=== PATIENT | male | born 1985 | race Two or more races ===

== ENCOUNTER 2017-03-06 07:51 | Emergency (ER) | payer OTHER ==
[2017-03-06 07:56] VITALS: BP 145/73; PULSE 80; TEMP 98.5; BMI 32.9
--- NOTE | 2017-03-06 08:22 | PDOC ---
History of Present Illness - General Chief Complaint: Cold Symptoms Stated Complaint: COUGH/SORE THROAT/RESPIRATORY Time Seen by Provider: 03/06/17 08:16 History Source: Patient Exam Limitations: No Limitations - History of Present Illness Initial Comments: 03/06/17 08:39 Her throat and pleuritic chest pain. States has had worsening cough and runny nose for the past 3 days, and is coughing causing his chest to pain in his throat to hurt more. Patient has severe seasonal ALLERGIES and receive shots weekly at the ENT doctors. Understands his tonsils are grossly enlarged but ear nose and throat doctor does not feel the need to be removed. Also suffers from sleep apnea. Denies fever, denies purulent drainage from nose,throat is red however has no exudate. Timing/Duration: reports: constant, getting worse Severity: reports: mild, moderate Past History - Travel Traveled outside of the country in the last 30 days: No Close contact w/someone who was outside of country & ill: No - Past Medical History Allergies/Adverse Reactions: Allergies Allergy/AdvReac Type Severity Reaction Status Date / Time No Known Allergies Allergy Verified 03/06/17 07:55 Home Medications: Ambulatory Orders Albuterol Sulfate Inhaler - [Ventolin HFA Inhaler -] 1 - 2 inh PO Q4H PRN #1 inhaler 05/17/16 Albuterol 0.083% Nebulizer Margaret [Ventolin 0.083% Nebulizer Soln -] 1 neb NEB Q4H PRN #30 vial 03/06/17 Prednisone [Deltasone -] 20 mg PO BID #8 tablet 03/06/17 Asthma: Yes - Surgical History Appendectomy: Yes - Immunization History Immunization Up to Date: Yes - Suicide/Smoking/Psychosocial Hx Smoking History: Never smoked Information on smoking cessation initiated: No Hx Alcohol Use: No Drug/Substance Use Hx: No Substance Use Type: None Respiratory Specific PMHX - Complaint Specific PMHX Bronchitis: No Pneumonia: No Review of Systems - Review of Systems Able to Perform ROS?: Yes Is the patient limited Urdu proficient: Yes Constitutional: Yes: Symptoms Reported, See HPI, Fever, Malaise HEENTM: Yes: Symptoms Reported Respiratory: Yes: Symptoms reported, See HPI, Cough. No: Wheezing Cardiac (ROS): No: Symptoms Reported ABD/GI: Yes: See HPI Musculoskeletal: Yes: Symptoms Reported, See HPI, Muscle Weakness Integumentary: Yes: See HPI. No: Symptoms Reported All Other Systems: Reviewed and Negative *Physical Exam - Vital Signs Last Vital Signs Temp Pulse Resp BP Pulse Ox 98.5 F 80 18 145/73 97 03/06/17 07:53 03/06/17 07:53 03/06/17 07:53 03/06/17 07:53 03/06/17 07:53 - Physical Exam General Appearance: Yes: Nourished, Appropriately Dressed, Mild Distress. No: Apparent Distress HEENT: positive: BETSY, Normal ENT Inspection, TMs Normal, Tonsillar Erythema ( mild erythema with grossly enlarged tonsils bilaterally. Patient states is baseline. No exudate noted and no fted odor. The posterior sinus drainage that sick whitish clear in posterior pharynx.), Nasal Congestion, Rhinorrhea, Sinus Tenderness. negative: Pharynx Normal, Muffled/Hoarse voice (stuffy nose) Neck: positive: Supple, Lymphadenopathy (R), Lymphadenopathy (L). negative: Tender Respiratory/Chest: positive: Lungs Clear, Other (deep inspiration provokes pleuritic chest pain). negative: Normal Breath Sounds (tight inspiratory and expiratory breath sounds, without rales although has faint wheezing.), Wheezing Cardiovascular: positive: Regular Rate Gastrointestinal/Abdominal: positive: Soft Musculoskeletal: positive: Normal Inspection Extremity: positive: Normal Capillary Refill, Normal Inspection, Normal Range of Motion Integumentary: positive: Normal Color, Dry, Warm Neurologic: positive: cable weaver II-XII NML intact, Fully Oriented, Alert, Normal Mood/ Affect, Normal Response, Motor Strength 5/5 Progress Note - Progress Note Progress Note: ALLERGIC rhinitis with severe posterior sinus drainage, pleuritic chest pain due to frequent cough caused by same. Rapid strep test is negative, mildly improved after DuoNeb and prednisone Medical Decision Making - Medical Decision Making 03/06/17 09:45 Much improved after prednisone and DuoNeb. States is ready for discharge. Will continue treating ALLERGIC rhinitis and encourage follow up with ENT *DC/Admit/Observation/Transfer Diagnosis at time of Disposition: Allergic rhinitis Qualifiers: Chronicity: acute Allergic rhinitis trigger: unspecified Allergic rhinitis seasonality: unspecified seasonality Qualified Code(s): J30.9 - Allergic rhinitis, unspecified; J30.9 - Allergic rhinitis, unspecified - Discharge Dispostion Disposition: HOME Condition at time of disposition: Stable Admit: No - Prescriptions Prescriptions: Prednisone [Deltasone -] 20 mg PO BID #8 tablet Albuterol 0.083% Nebulizer Margaret [Ventolin 0.083% Nebulizer Soln -] 1 neb NEB Q4H PRN #30 vial PRN Reason: Cough - Patient Instructions Additional Instructions: Rest, drink lots of fluids: Teas, water, soups Saltwater gargles. Consider humidifier in room at night Steamy showers/seem to face break up mucus Avoid contact with allergens, exposure to pollens, close windows on a windy day Lots of handwashing and good hygiene Continue [id number] medications for symptomatic relief- may use allergic eyedrops for itching I Continue antihistamines daily until pollen season is over; Zyrtec, Claritin, Crystal during the daytime and Benadryl at nighttime as will make sleepy Tylenol or Motrin for fever and pain Continue albuterol nebulizers every 4-6 hours for the next 2 days then as needed for persistent cough Prednisone 40 mg daily for the next 4 days Followup with private physician in one to 2 days Consider following up with an snipper/fire prevention inspector for skin testing and possible allergy shots Return to emergency department for worsened symptoms, fevers, dehydration - Post Discharge Activity Forms/Work/School Notes: Back to Work
[2017-03-06] MEDS ORDERED: predniSONE 20 MG TABLET (UD) PO ONE (08:38)
[2017-03-06] MEDS ORDERED: ALBUTEROL SO4 2.5/IPRATROPIUM 0.5 INH SOL 3 ML VIAL.NEB. NEB ONE (08:38)
== END 2017-03-06 09:55 | disposition home or self-care (01) ==
LOC: JERFT 07:51
PROC: 3E0F7GC Introduction of Other Therapeutic Substance into Respiratory Tract, Via Natural or Artificial Opening (ICD-10-PCS; principal; 2017-03-06)
DX: J30.9 Allergic rhinitis, unspecified (principal)
CPT/HCPCS: 87070; 87430; 99281-25

== ENCOUNTER 2017-03-24 22:29 | Emergency (ER) | payer OTHER ==
[2017-03-24 22:47] VITALS: BP 130/81; PULSE 83; TEMP 98.1; BMI 32.9
--- NOTE | 2017-03-24 23:15 | PDOC ---
History of Present Illness - General History Source: Patient Exam Limitations: No Limitations - History of Present Illness Initial Comments: 03/24/17 23:39 The patient is a 31 year old male, with a significant past medical history of asthma, who presents to the emergency department with shortness of breath for approximately 2 weeks. The patient reports every time he takes a deep breath it feels as if he is inhaling cigarette smoke. He reports associated cough when he takes a deep breath, but denies any fever, chills, sore throat, headache, or dizziness. The patient states he presented to the ED with similar symptoms and an episode of hemoptysis approximately 2 weeks ago. He states he was told it was an episode of asthma exacerbation, and was started on Prednisone for 5 days. Patient reports finishing his Prednisone treatment, but his symptoms persisted. Patient reports taking Albuterol over the past couple of days, however,he ran out of it yesterday. Patient denies any chest pain, diaphoresis, or palpitations. He denies any abdominal pain, nausea, or vomiting. He denies any recent travel or sick contacts. Allergies: NKDA Past Surgical History: Appendectomy Social History: Non smoker. No ETOH or recreational drug use. <Aye Randall - Last Filed: 03/24/17 23:39> <João Flores - Last Filed: 03/25/17 00:45> - General Chief Complaint: Asthma Stated Complaint: DIFFICULTY BREATHING Time Seen by Provider: 03/24/17 22:58 Past History <Aye Randall - Last Filed: 03/24/17 23:39> - Past Medical History Asthma: Yes - Surgical History Appendectomy: Yes - Immunization History Immunization Up to Date: Yes - Suicide/Smoking/Psychosocial Hx Smoking History: Never smoked Hx Alcohol Use: No Drug/Substance Use Hx: No Substance Use Type: None <João Flores - Last Filed: 03/25/17 00:45> - Past Medical History Allergies/Adverse Reactions: Allergies Allergy/AdvReac Type Severity Reaction Status Date / Time No Known Allergies Allergy Verified 03/24/17 23:17 Home Medications: Ambulatory Orders Albuterol 0.083% Nebulizer Margaret [Ventolin 0.083% Nebulizer Soln -] 1 neb NEB Q4H PRN #30 vial 10/10/17 Albuterol Sulfate Inhaler - [Ventolin HFA Inhaler -] 1 - 2 inh PO Q4H #1 inhaler 03/25/17 Respiratory Specific PMHX - Complaint Specific PMHX Bronchitis: No Pneumonia: No <João Flores - Last Filed: 03/25/17 00:45> Review of Systems - Review of Systems Able to Perform ROS?: Yes Comments:: 03/24/17 23:39 CONSTITUTIONAL: No fever, no chills, no fatigue EYES: No visual changes ENT: No ear pain, no sore throat CARDIOVASCULAR: No chest pain, no palpitations RESPIRATORY: Yes SOB, cough with deep breath. GI: No abdominal pain, no nausea, no vomiting, no constipation, no diarrhea GENITOURINARY: No dysuria, no frequency, no hematuria MUSCULOSKELETAL: No back pain, no joint pain, no myalgias SKIN: No rash NEURO: No headache <Aye Randall - Last Filed: 03/24/17 23:39> *Physical Exam - Vital Signs Last Vital Signs Temp Pulse Resp BP Pulse Ox 98.1 F 83 16 130/81 98 03/24/17 22:44 03/24/17 22:44 03/24/17 22:44 03/24/17 22:44 03/24/17 22:44 - Physical Exam Comments: 03/24/17 23:40 CONSTITUTIONAL: Well-appearing; well-nourished; in no apparent distress HEAD: Normocephalic; atraumatic EYES: PERRL; EOM intact ENMT: External appears normal; normal oropharynx NECK: Supple; non-tender; no cervical lymphadenopathy CARD: Normal S1, S2; no murmurs, rubs, or gallops RESP: Normal chest excursion with respiration; breath sounds clear and equal bilaterally; no wheezes, rhonchi, or rales ABD: Soft, non-distended; non-tender; no palpable organomegaly, no palpable hernias EXT: Normal ROM in all four extremities; non-tender to palpation; distal pulses intact SKIN: Warm, dry, no rash NEURO: No focal neurological deficiencies. <Aye Randall - Last Filed: 03/24/17 23:39> - Vital Signs Last Vital Signs Temp Pulse Resp BP Pulse Ox 98.1 F 83 16 130/81 98 03/24/17 22:44 03/24/17 22:44 03/24/17 22:44 03/24/17 22:44 03/24/17 22:44 <João Flores - Last Filed: 03/25/17 00:45> ED Treatment Course - Medications Given in the ED: ED Medications Discontinued Medications Generic Name Dose Route Start Last Admin Trade Name Darling PRN Reason Stop Dose Admin Albuterol/Ipratropium 1 amp 03/24/17 23:24 03/24/17 23:33 Duoneb - NEB 03/24/17 23:25 1 amp ONCE ONE Administration <Aye Randall - Last Filed: 03/24/17 23:39> Medical Decision Making - Medical Decision Making 03/25/17 00:43 Patient is well-appearing 31-year-old male with history of asthma who presents with signs and symptoms of reactive airway disease. Patient's symptoms improved after administration of Combivent. Chest x-ray reveals no evidence of masses or infiltrates. Patient is hemodynamically stable and oxygen saturation room air is noted to be 98-99%. I do not suspect TB or PE at this time. Patient had been prescribed Singulair by his primary care physician but has failed to fill the prescription. I've advised the patient to start taking Singulair as prescribed and will discharge the patient with albuterol MDI for symptomatic relief. <João Flores - Last Filed: 03/25/17 00:45> *DC/Admit/Observation/Transfer - Attestations Scribe Attestion: 03/24/17 23:40 Documentation prepared by Aye Randall, acting as claim review medical director for João Flores MD. <Aye Randall - Last Filed: 03/24/17 23:39> - Attestations Physician Attestion: 03/25/17 00:43 The documentation was prepared by the scribe under my direct supervision. I have reviewed the documentation which correctly represents the findings, medical decision-making and critical action taken by me. <João Flores - Last Filed: 03/25/17 00:45> Diagnosis at time of Disposition: Reactive airway disease Qualifiers: Asthma severity: mild Asthma persistence: intermittent Asthma complication type : with acute exacerbation Qualified Code(s): J45.21 - Mild intermittent asthma with (acute) exacerbation; J45.21 - Mild intermittent asthma with (acute) exacerbation; J45.21 - Mild intermittent asthma with (acute) exacerbation - Discharge Dispostion Disposition: HOME Condition at time of disposition: Stable - Referrals Referrals: pmd, one week [Other] - Patient Instructions Printed Discharge Instructions: Asthma -- Adult
[2017-03-24] MEDS ORDERED: ALBUTEROL SO4 2.5/IPRATROPIUM 0.5 INH SOL 3 ML VIAL.NEB. NEB ONE ×2 (23:24→23:35)
== END 2017-03-25 00:52 | disposition home or self-care (01) ==
LOC: JER 22:29
PROC: 3E0F7GC Introduction of Other Therapeutic Substance into Respiratory Tract, Via Natural or Artificial Opening (ICD-10-PCS; principal; 2017-03-24)
DX: J45.21 Mild intermittent asthma with (acute) exacerbation (principal)
CPT/HCPCS: 71020-TC; 99281-25

== ENCOUNTER 2018-08-10 23:56 | Emergency (ER) | payer OTHER ==
[2018-08-11 00:01] VITALS: BP 124/83; PULSE 92; TEMP 97.9; BMI 32.9
[2018-08-11] MEDS ORDERED: OSELTAMIVIR PHOSPHATE 75 MG CAPSULE PO ONE (01:15)
[2018-08-11] MEDS ORDERED: predniSONE 20 MG TABLET (UD) PO ONE (01:15)
[2018-08-11] MEDS ORDERED: ALBUTEROL SO4 0.083% IH SOL 2.5 MG/3 ML VIAL.NEB. NEB ONE (01:15)
[2018-08-11] MEDS ORDERED: predniSONE 20 MG TABLET (UD) ONE (01:19)
[2018-08-11] MEDS ORDERED: ALBUTEROL SO4 2.5/IPRATROPIUM 0.5 INH SOL 3 ML VIAL.NEB. NEB ONE (01:20)
[2018-08-11] MEDS ORDERED: OSELTAMIVIR PHOSPHATE 75 MG CAPSULE ONE (01:20)
--- NOTE | 2018-08-11 01:26 | PDOC ---
Attending Attestation - HPI HPI: 08/11/18 02:07 The patient is a 32 year old male with past medical history significant for asthma, post nasal drip and eczema presents to the emergency department with right ear pain and a headache. The patient presents with R. sided temporal headache, that radiates to the right ear. The patient reports the pain is 8/10 in severity, no known alleviating factor. The patient reports associated symptoms of tinnitus couple of days ago, reports taking tylenol without relief. Denies fever or chills. - Medical Decision Making 08/11/18 02:07 Documentation prepared by Ginette Fischer, acting as medical records library professor for Mita Lynch MD. <Ginette Fischer - Last Filed: 08/11/18 02:07> - Resident Resident Name: Nehal Ortega - ED Attending Attestation I have performed the following: I have examined & evaluated the patient, The case was reviewed & discussed with the resident, I agree w/resident's findings & plan - Physicial Exam PE: 08/11/18 06:40 AGREE WITH RESIDENT EXAM. PT IS AFEBRILE AND HE HAS NO NASAL DISCHARGE AND NO SIGN OF SWOLLEN LYMPH NODES IN THE SUBMENTAL OR POSTERIOR AURICULAR AREAS. - Medical Decision Making 08/11/18 01:44 Right ear pain. but no fever. Normal exam. Pt has tenderness of jehovah's witness and sinus areas on the right side of face. Pt will be treated for sinusitis follow with ENT <Mita Lynch - Last Filed: 08/11/18 06:42>
--- NOTE | 2018-08-11 01:43 | PDOC ---
History of Present Illness - General Chief Complaint: Ear Problem Stated Complaint: HEAD/EAR PAIN Time Seen by Provider: 08/11/18 00:11 - History of Present Illness Initial Comments: 32yo M with PMH of eczema, asthma, postnasal drip presenting with headache and R. ear pain. Patient states that he has had an 8/10 headache focal to his R. shinto x 2-3 weeks and decided to come to the ED when the pain started radiating to his R. ear yesterday. Denies hearing difficulties but has had some tinnitus a couple days ago. Patient follows with an ENT specialist for chronic postnasal drip. 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 He had taken tylenol at home for his pain about a week or two ago but stopped taking it after it did not provide him any relief. No weakness or focal neurologic deficits. Patient denies fevers, chills, chest pain, or shortness of breath. ENT: Dr. Denver Campo Past History - Past Medical History Allergies/Adverse Reactions: Allergies Allergy/AdvReac Type Severity Reaction Status Date / Time No Known Allergies Allergy Verified 08/11/18 01:18 Home Medications: Ambulatory Orders Albuterol 0.083% Nebulizer Margaret [Ventolin 0.083% Nebulizer Soln -] 1 neb NEB Q4H PRN #30 vial 03/06/17 Albuterol Sulfate Inhaler - [Ventolin HFA Inhaler -] 1 - 2 inh PO Q4H #1 inhaler 03/25/17 Azithromycin [Zithromax Tri-Hany (3 DAYS) -] 500 mg PO DAILY #3 tablet 08/11/18 Pseudoephedrine HCl [Sudafed] 60 mg PO Q6H #30 tablet 08/11/18 predniSONE [Deltasone -] 40 mg PO DAILY #8 tablet 08/11/18 Asthma: Yes - Surgical History Appendectomy: Yes - Immunization History Immunization Up to Date: Yes - Suicide/Smoking/Psychosocial Hx Smoking History: Unknown if ever smoked Have you smoked in the past 12 months: No Hx Alcohol Use: No Drug/Substance Use Hx: No Substance Use Type: None Review of Systems - Review of Systems Comments:: Constitutional: no fever, no chills HEENT: no throat pain, +R. ear pain Cardiovascular: no chest pain, no palpitations Respiratory: no cough, no shortness of breath Gastrointestinal: no abdominal pain, no nausea Genitourinary: no dysuria, no frequency Musculoskeletal: no myalgia, no arthralgia Skin: no rash, no itching Neurologic: +headache, no dizziness *Physical Exam - Vital Signs Last Vital Signs Temp Pulse Resp BP Pulse Ox 97.9 F 92 H 20 124/83 99 08/10/18 23:59 08/10/18 23:59 08/10/18 23:59 08/10/18 23:59 08/10/18 23:59 - Physical Exam Comments: General: Awake, alert, and fully oriented, in no acute distress Head: No signs of trauma Eyes: EOMI, sclera anicteric ENT: Moist mucus membranes, normal non-bulging TMs, non-erythematous throat, no mastoid tenderness noted, pinna without tenderness Neck: Normal ROM, supple Lungs: Lungs clear, Normal breath sounds Cardio: Regular rhythm, S1 and S2 present Abdomen: Soft, nontender. No guarding, no rebound, no masses Extremities: Normal range of motion, Distal pulses present SKIN: Warm, Dry, normal turgor Neurologic: Cranial nerves II through XII intact. Normal speech, sensation, strength, coordination, and gait. Moderate Sedation - Procedure Monitoring Vital Signs: Procedure Monitoring Vital Signs Temperature 97.9 F 08/10/18 23:59 Pulse Rate 92 H 08/10/18 23:59 Respiratory Rate 20 08/10/18 23:59 Blood Pressure 124/83 08/10/18 23:59 O2 Sat by Pulse Oximetry (%) 99 08/10/18 23:59 ED Treatment Course - Medications Given in the ED: ED Medications Discontinued Medications Generic Name Dose Route Start Last Admin Trade Name Nickq PRN Reason Stop Dose Admin Albuterol Sulfate 3 amp 08/11/18 01:15 08/11/18 01:24 Ventolin 0.083% Nebulizer Soln - NEB 08/11/18 01:16 3 amp ONCE ONE Administration Oseltamivir Phosphate 75 mg 08/11/18 01:15 08/11/18 01:24 Tamiflu - PO 08/11/18 01:16 75 mg ONCE ONE Administration Prednisone 40 mg 08/11/18 01:15 08/11/18 01:24 Deltasone - PO 08/11/18 01:16 40 mg ONCE ONE Administration Medical Decision Making - Medical Decision Making 32yo M with PMH of eczema, asthma, postnasal drip presenting with headache and R. ear pain. VSS WNL Presentation consistent with sinusitis Patient given prednisone, sudafed Z-hany sent to pharmacy Discharged 08/11/18 02:00 *DC/Admit/Observation/Transfer Diagnosis at time of Disposition: Sinusitis Qualifiers: Sinusitis location: unspecified location Chronicity: acute Recurrence: not specified as recurrent Qualified Code(s): J01.90 - Acute sinusitis, unspecified - Discharge Dispostion Disposition: HOME - Prescriptions Prescriptions: Azithromycin [Zithromax Tri-Hany (3 DAYS) -] 500 mg PO DAILY #3 tablet predniSONE [Deltasone -] 40 mg PO DAILY #8 tablet Pseudoephedrine HCl [Sudafed] 60 mg PO Q6H #30 tablet - Referrals - Patient Instructions Printed Discharge Instructions: DI for Sinusitis Additional Instructions: You came into the ED for headache and ear pain. Prescription has been sent to your pharmacy. You can take [id number] tylenol or motrin for pain. Follow the instructions on the medication bottle. Follow-up with your ENT physician this week to discuss this ED visit and to further evaluate your earache. Your care is not complete until you do so. Call and make an appointment. Immediate medical attention is required if you have: you develop worsening pain , high fevers, or any new or concerning symptoms. If you think you are having an emergency, call for emergency medical services or present to the emergency department right away. - Post Discharge Activity
[2018-08-11] MEDS ORDERED: PSEUDOEPHEDRINE HCL 60 MG TABLET PO ONE (01:47)
[2018-08-11] MEDS ORDERED: PSEUDOEPHEDRINE HCL 60 MG TABLET ONE (01:50)
== END 2018-08-11 02:26 | disposition home or self-care (01) ==
LOC: JER 23:56
PROC: 3E0F7GC Introduction of Other Therapeutic Substance into Respiratory Tract, Via Natural or Artificial Opening (ICD-10-PCS; principal; 2018-08-10)
DX: J45.909 Unspecified asthma, uncomplicated (principal); R09.82 Postnasal drip
CPT/HCPCS: 99282-25

== ENCOUNTER 2019-04-03 18:26 | Emergency (ER) | payer OTHER ==
[2019-04-03 18:33] VITALS: BP 131/77; PULSE 125; TEMP 100; BMI 32.9
--- NOTE | 2019-04-03 18:33 | PDOC ---
Rapid Medical Evaluation Chief Complaint: Cold Symptoms Time Seen by Provider: 04/03/19 18:27 Medical Evaluation: Allergies Allergy/AdvReac Type Severity Reaction Status Date / Time No Known Allergies Allergy Verified 08/11/18 01:18 04/03/19 18:28 I have performed a brief in-person evaluation of this patient. The patient presents with a chief complaint of:cough/ body aches x 24hours / fevers/ chills Pertinent physical exam findings: pale/ moist cough I have ordered the following: influenza The patient will proceed to the ED for further evaluation. Discharge Disposition - Diagnosis Fever - Discharge Dispostion Condition at time of disposition: Stable - Referrals - Patient Instructions - Post Discharge Activity
[2019-04-03] MEDS ORDERED: IBUPROFEN 600 MG TABLET (FP) PO ONE ×2 (18:54→19:13)
--- NOTE | 2019-04-03 18:54 | PDOC ---
History of Present Illness - General Chief Complaint: Cold Symptoms Stated Complaint: FEVER Time Seen by Provider: 04/03/19 18:27 History Source: Patient - History of Present Illness Initial Comments: 04/03/19 19:41 Chief complaint: Fever and cough Patient 33-year-old male with history of asthma, never hospitalized with 2 days of fever, cough, runny nose. Patient complaining of facial pressure. Patient' s oral temperature is 100 but his heart rate is 125. Patient not in any respiratory distress. Patient has been eating and drinking. GENERAL/CONSTITUTIONAL: +fever, weakness. No: Dizziness HEAD, EYES, EARS, NOSE AND THROAT: No change in vision. No ear pain or discharge. No sore throat. CARDIOVASCULAR: No chest pain RESPIRATORY: No shortness of breath, +cough GASTROINTESTINAL: No pain, nausea, vomiting, diarrhea or constipation GENITOURINARY: No dysuria MUSCULOSKELETAL: No neck or back pain SKIN: No rash NEUROLOGIC: No headache, vertigo, loss of consciousness, or loss of sensation. GENERAL: The patient is awake, alert, and fully oriented, in no acute distress. HEAD: Normal with no signs of trauma. EYES: Pupils equal, round and reactive to light, sclera anicteric, conjunctiva clear. ENT: pharynx: no erythema, no exudate, uvula midline NECK: supple CHEST: Mild wheezing and tightness, no respiratory distress, when takes deep inhalation, starts coughing, nontender, rr ABD: soft, nontender BACK: no tenderness or signs of injury EXTREMITIES: Normal range of motion, no edema. NEUROLOGICAL: Normal speech, normal gait. SKIN: Warm, Dry Past History - Past Medical History Allergies/Adverse Reactions: Allergies Allergy/AdvReac Type Severity Reaction Status Date / Time No Known Allergies Allergy Verified 04/03/19 18:29 Home Medications: Ambulatory Orders Albuterol 0.083% Nebulizer Margaret [Ventolin 0.083% Nebulizer Soln -] 1 neb NEB Q4H PRN #30 vial 08/11/18 Albuterol Sulfate Inhaler - [Ventolin HFA Inhaler -] 1 - 2 inh PO Q4H #1 inhaler 08/11/18 Azithromycin [Zithromax Tri-Hany (3 DAYS) -] 500 mg PO DAILY #3 tablet 08/11/18 Pseudoephedrine HCl [Sudafed] 60 mg PO Q6H #30 tablet 08/11/18 predniSONE [Deltasone -] 40 mg PO DAILY #8 tablet 08/11/18 predniSONE [Deltasone -] 40 mg PO DAILY #8 tablet 04/03/19 Asthma: Yes COPD: No - Surgical History Appendectomy: Yes - Immunization History Immunization Up to Date: Yes - Psycho Social/Smoking Cessation Hx Smoking History: Never smoked Have you smoked in the past 12 months: No Hx Alcohol Use: No Drug/Substance Use Hx: No Substance Use Type: None *Physical Exam - Vital Signs Last Vital Signs Temp Pulse Resp BP Pulse Ox 100 F H 125 H 18 131/77 98 04/03/19 18:26 04/03/19 18:26 04/03/19 18:26 04/03/19 18:26 04/03/19 18:26 Medical Decision Making - Medical Decision Making 04/03/19 19:43 33-year-old male history of asthma with fever and upper respiratory infection. Patient has some wheezing. Patient will get flu swab, chest x-ray, Motrin. After flu comes back if negative we will give DuoNeb treatments and prednisone in the ER. Patient will be sent home on same plus or minus antibiotics depending on chest x-ray. Patient is not sick enough to need hospitalization. Patient did not take any antipyretics since this morning. Flu, strep and chest x-ray all negative, patient is clear after 1 DuoNeb. Patient was given prednisone. Patient was given 1 L of fluid and Tylenol in addition to the Motrin. Heart rate is now 95, patient's headache is gone any starting to feel better. Will discharge after liter of fluid Discussed issues, findings, results, applicable medications and treatments and follow-up. All these were understood and all questions were answered 04/03/19 20:52 04/03/19 21:55 IV removed from left AC Discharge - Discharge Information Problems reviewed: Yes Clinical Impression/Diagnosis: Wheezing Upper respiratory infection Qualifiers: URI type: unspecified URI Qualified Code(s): J06.9 - Acute upper respiratory infection, unspecified Condition: Stable Disposition: HOME - Admission No - Additional Discharge Information Prescriptions: predniSONE [Deltasone -] 40 mg PO DAILY #8 tablet - Follow up/Referral Referrals: Ty Tirado MD [Primary Care Provider] - - Patient Discharge Instructions Patient Printed Discharge Instructions: DI for Viral Upper Respiratory Infection -- Adult Additional Instructions: Drink 2-3 L of water daily Take Tylenol 650 mg every 4 hours or Motrin 600 mg every 6 hours for fever and pain Use albuterol inhaler, 2 puffs every 4 hours as needed for wheezing. Take prednisone 40 mg once daily until finished. Return to the ER if fever, shortness of breath or getting sicker. Otherwise follow-up with your doctor in one to 2 days - Post Discharge Activity Work/Back to School Note: Back to Work
[2019-04-03] MEDS ORDERED: predniSONE 20 MG TABLET (UD) PO ONE (19:05)
[2019-04-03] MEDS ORDERED: predniSONE 20 MG TABLET (UD) ONE (19:13)
[2019-04-03] MEDS ORDERED: ALBUTEROL SO4 2.5/IPRATROPIUM 0.5 INH SOL 3 ML VIAL.NEB. NEB ONE (19:15)
[2019-04-03] MEDS ORDERED: SODIUM CHLORIDE 1,000 ML IV STA (19:58)
[2019-04-03] MEDS ORDERED: ACETAMINOPHEN 1000 MG/100 ML VIAL (NON FORMULARY) IVPB ONE (19:58)
[2019-04-03] MEDS ORDERED: ACETAMINOPHEN INJECTION 100 ML IVPB ONE (19:59)
== END 2019-04-03 21:57 | disposition home or self-care (01) ==
LOC: JERFT 18:26 → JER 18:26 → JERFT 21:57
PROC: 3E033NZ Introduction of Analgesics, Hypnotics, Sedatives into Peripheral Vein, Percutaneous Approach (ICD-10-PCS; principal; 2019-04-03)
DX: J06.9 Acute upper respiratory infection, unspecified (principal)
CPT/HCPCS: 71046-TC-FY; 87070; 87804; 87880; 99281-25; J0131; J7030

== ENCOUNTER 2022-05-31 19:39 | Emergency (ER) | payer OTHER ==
[2022-05-31 19:43] VITALS: BP 115/77; PULSE 65; RESP 17; TEMP 98.1; BMI 32.0
[2022-05-31] MEDS ORDERED: TETRACAINE 0.5% HCL 0.6ML DROPPER.BOTTLE OS ONE (20:22)
[2022-05-31] MEDS ORDERED: FLUORESCEIN NA 1 EA STRIP OS ONE (20:23)
[2022-05-31] MEDS ORDERED: TETRACAINE 0.5% OPHTH SOLN 2 ML BOTTLE ONE (20:24)
[2022-05-31] MEDS ORDERED: FLUORESCEIN NA 1 EA STRIP ONE (20:24)
== END 2022-05-31 20:35 | disposition home or self-care (01) ==
LOC: JERFT 19:39
DX: S05.02XA Injury of conjunctiva and corneal abrasion without foreign body, left eye, initial encounter (principal); Y99.8 Other external cause status
CPT/HCPCS: 99283-25

== ENCOUNTER 2022-07-07 05:59 | Emergency (ER) | payer OTHER ==
[2022-07-07 06:06] VITALS: TEMP 97.8; BMI 31.1
[2022-07-07] MEDS ORDERED: ONDANSETRON 4 MG/2 ML VIAL IVPUSH ONE (07:34)
[2022-07-07] MEDS ORDERED: MAG HYDROX/AL HYDROX/SIMETH -MYLANTA- ORAL SUSPENSION PO ONE (07:34)
[2022-07-07] MEDS ORDERED: ACETAMINOPHEN 1000 MG/100 ML BAG IVPB ONE (07:34)
[2022-07-07] MEDS ORDERED: MAG HYDROX/AL HYDROX/SIMETH 30 ML UNIT-DOSE CUP ONE (08:01)
[2022-07-07] MEDS ORDERED: ONDANSETRON 4 MG/2 ML VIAL ONE (08:01)
[2022-07-07] MEDS ORDERED: ACETAMINOPHEN INJECTION 100 ML IVPB ONE (08:01)
[2022-07-07 08:05] LABS: BASO % 0.5 % (0-2.0); HEMATOCRIT 46.4 % (35.4-49); HEMOGLOBIN 15.5 GM/dL (11.7-16.9); LYMPH % 25.7 % (8-40); MCH 27.7 pg (25.7-33.7); MCHC 33.4 g/dl (32.0-35.9); MEAN CELL VOLUME 83.1 fl (80-96); MEAN PLT VOLUME 7.7 fl (7.5-11.1); MONO % 6.2 % (3.8-10.2); NEUT % 66.6 % (42.8-82.8); PLATELET COUNT 350 10^3/uL (134-434); RBC 5.59 M/mm3 (4.00-5.60); RDW 13.9 % (11.9-15.9); WHITE BLOOD COUNT 7.1 K/mm3 (4.0-10.0)
[2022-07-07 08:23] LABS: CALCIUM 9.7 mg/dL (8.5-10.1)
[2022-07-07 08:24] LABS: BLOOD UREA NITROGEN 10.2 mg/dL (7-18)
[2022-07-07 08:28] LABS: BILIRUBIN,TOTAL 0.7 mg/dL (0.2-1); TOT PROT 8.1 g/dl (6.4-8.2)
[2022-07-07 10:08] VITALS: BP 106/59; PULSE 60; RESP 17
== END 2022-07-07 10:07 | disposition home or self-care (01) ==
LOC: JER 05:59
PROC: 3E033GC Introduction of Other Therapeutic Substance into Peripheral Vein, Percutaneous Approach (ICD-10-PCS; principal; 2022-07-07)
DX: R10.10 Upper abdominal pain, unspecified (principal)
CPT/HCPCS: 36415; 80053; 83690; 85025; 99284-25

== ENCOUNTER 2022-07-07 20:58 | Emergency (ER) | payer OTHER ==
[2022-07-07 21:12] VITALS: BP 112/73; PULSE 65; RESP 18; TEMP 98.7; BMI 31.1
[2022-07-07] MEDS ORDERED: MAG HYDROX/AL HYDROX/SIMETH -MYLANTA- ORAL SUSPENSION PO ONE (21:39)
[2022-07-07] MEDS ORDERED: FAMOTIDINE 10 MG TABLET PO ONE (21:39)
[2022-07-07] MEDS ORDERED: MAG HYDROX/AL HYDROX/SIMETH 30 ML UNIT-DOSE CUP ONE (21:42)
[2022-07-07] MEDS ORDERED: FAMOTIDINE 10 MG TABLET ONE (21:42)
== END 2022-07-07 22:28 | disposition home or self-care (01) ==
LOC: JER 20:58
DX: R10.13 Epigastric pain (principal); K59.09 Other constipation
CPT/HCPCS: 99283-25

== ENCOUNTER 2022-07-21 00:05 | Observation (INO) | payer OTHER ==
[2022-07-21 00:12] VITALS: BMI 31.1
[2022-07-21] MEDS ORDERED: LACTATED RINGERS SOLUTION 1000 ML INFUS.BAG IV ONE (01:06)
[2022-07-21 01:58] LABS: BASO % 0.7 % (0-2.0); HEMATOCRIT 43.3 % (35.4-49); HEMOGLOBIN 15.1 GM/dL (11.7-16.9); LYMPH % 34.7 % (8-40); MCH 28.7 pg (25.7-33.7); MCHC 34.9 g/dl (32.0-35.9); MEAN CELL VOLUME 82.1 fl (80-96); MEAN PLT VOLUME 7.9 fl (7.5-11.1); NEUT % 51.6 % (42.8-82.8); PLATELET COUNT 305 10^3/uL (134-434); RBC 5.28 M/mm3 (4.00-5.60); RDW 14.1 % (11.9-15.9); WHITE BLOOD COUNT 5.9 K/mm3 (4.0-10.0)
[2022-07-21] MEDS ORDERED: ASPIRIN 81 MG CHEWABLE TABLETS PO ONE (02:20)
[2022-07-21 02:30] LABS: CALCIUM 9.2 mg/dL (8.5-10.1)
[2022-07-21 02:31] LABS: ALBUMIN 3.8 g/dl (3.4-5.0); BLOOD UREA NITROGEN 12.9 mg/dL (7-18); MAGNESIUM 2.5 mg/dL (1.8-2.4)
[2022-07-21] MEDS ORDERED: ASPIRIN 81 MG CHEWABLE TABLETS ONE (02:32)
[2022-07-21 02:35] LABS: BILIRUBIN,TOTAL 0.4 mg/dL (0.2-1)
[2022-07-21 02:36] LABS: TOT PROT 7.8 g/dl (6.4-8.2)
[2022-07-21] MEDS ORDERED: ENOXAPARIN NA (PORCINE) 40 MG/0.4 ML DISP.SYRIN SQ SCH (10:00)
[2022-07-21] MEDS ORDERED: ENOXAPARIN NA (PORCINE) 40 MG/0.4 ML DISP.SYRIN SQ ONE (12:23)
[2022-07-21 16:35] VITALS: TEMP 98.3
[2022-07-21 17:42] VITALS: BP 105/66; PULSE 67; RESP 13
== END 2022-07-21 18:27 | disposition left against medical advice (07) ==
LOC: JER 00:05 → JERBED 02:20
PROVIDERS: ADMIT Internal Medicine; ATTEND Internal Medicine
PROC: 3E023GC Introduction of Other Therapeutic Substance into Muscle, Percutaneous Approach (ICD-10-PCS; principal; 2022-07-21)
PROC: 3E0337Z Introduction of Electrolytic and Water Balance Substance into Peripheral Vein, Percutaneous Approach (ICD-10-PCS; 2022-07-21)
DX: R00.2 Palpitations (principal); R55 Syncope and collapse; R94.31 Abnormal electrocardiogram [ECG] [EKG]; R20.2 Paresthesia of skin; R10.11 Right upper quadrant pain; E66.8 Other obesity; Z68.31 Body mass index [BMI] 31.0-31.9, adult
CPT/HCPCS: 0241U-QW; 36415; 74177-TC; 76705-TC; 80053; 83690; 83735; 84484; 85025; 93005; 93010; 99285-25; G0378

== ENCOUNTER 2022-07-23 08:41 | Inpatient (IN) | payer OTHER ==
[2022-07-23] MEDS ORDERED: KETOROLAC TROMETHAMINE 30 MG/1 ML VIAL IVPUSH ONE (09:27)
[2022-07-23] MEDS ORDERED: ACETAMINOPHEN 1000 MG/100 ML BAG IVPB ONE (09:27)
[2022-07-23] MEDS ORDERED: SODIUM CHLORIDE 0.9% 500 ML INFUS.BAG IV ONE (09:27)
[2022-07-23] MEDS ORDERED: ACETAMINOPHEN INJECTION 100 ML IVPB ONE (09:29)
[2022-07-23] MEDS ORDERED: KETOROLAC TROMETHAMINE 30 MG/1 ML VIAL ONE (09:30)
[2022-07-23 10:06] LABS: BASO % 0.5 % (0-2.0); EOS % 2.6 % (0-4.5); HEMATOCRIT 44.2 % (35.4-49); HEMOGLOBIN 15.4 GM/dL (11.7-16.9); LYMPH % 30.6 % (8-40); MCH 28.6 pg (25.7-33.7); MCHC 34.8 g/dl (32.0-35.9); MEAN PLT VOLUME 8.1 fl (7.5-11.1); MONO % 8.1 % (3.8-10.2); NEUT % 58.2 % (42.8-82.8); PLATELET COUNT 301 10^3/uL (134-434); RBC 5.38 M/mm3 (4.00-5.60)
[2022-07-23 10:11] LABS: INR 1.17 (0.83-1.09); PROTHROMBIN TIME (PATIENT) 13.5 SEC (9.7-13.0)
[2022-07-23 10:30] LABS: ALBUMIN 3.7 g/dl (3.4-5.0); BLOOD UREA NITROGEN 10.9 mg/dL (7-18); CALCIUM 9.3 mg/dL (8.5-10.1)
[2022-07-23 10:33] LABS: CREATININE 0.9 mg/dL (0.55-1.3)
[2022-07-23 10:35] LABS: BILIRUBIN,TOTAL 0.5 mg/dL (0.2-1); TOT PROT 7.8 g/dl (6.4-8.2)
[2022-07-23 10:40] LABS: PH,URINE 6.5 (5.0-8.0); URINE APPEARANCE CLEAR; URINE BILIRUBIN NEGATIVE (NEGATIVE); URINE COLOR YELLOW; URINE GLUCOSE (UA) NEGATIVE (NEGATIVE); URINE KETONE 2+ (NEGATIVE); URINE LEUK ESTERASE NEGATIVE (NEGATIVE); URINE NITRITE NEGATIVE (NEGATIVE); URINE PROTEIN TRACE (NEGATIVE); URINE UROBILINOGEN 0.2 mg/dL (0.2-1.0)
[2022-07-23] MEDS ORDERED: ONDANSETRON 4 MG/2 ML VIAL IVPUSH ONE (10:42)
[2022-07-23] MEDS ORDERED: ONDANSETRON 4 MG/2 ML VIAL ONE ×2 (10:51→11:58)
[2022-07-23] MEDS ORDERED: ACETAMINOPHEN 325 MG TABLET (FP) PO PRN (13:11)
[2022-07-23] MEDS ORDERED: LACTATED RINGERS SOLUTION 1,000 ML IV SCH (13:15)
[2022-07-23] MEDS ORDERED: ONDANSETRON 4 MG/2 ML VIAL IVPUSH PRN (14:00)
[2022-07-23] MEDS ORDERED: MAG HYDROX/AL HYDROX/SIMETH 30 ML UNIT-DOSE CUP PO PRN (14:44)
[2022-07-24] MEDS: PANTOPRAZOLE 40 MG TABLET PO SCH (09:42)
[2022-07-24] MEDS: ENOXAPARIN NA (PORCINE) 40 MG/0.4 ML DISP.SYRIN SQ SCH (09:42)
[2022-07-24 10:36] LABS: BASO % 0.4 % (0-2.0); EOS % 1.8 % (0-4.5); HEMATOCRIT 43.4 % (35.4-49); HEMOGLOBIN 14.9 GM/dL (11.7-16.9); LYMPH % 32.7 % (8-40); MCH 28.3 pg (25.7-33.7); MCHC 34.4 g/dl (32.0-35.9); MEAN CELL VOLUME 82.3 fl (80-96); MEAN PLT VOLUME 8.5 fl (7.5-11.1); MONO % 5.3 % (3.8-10.2); NEUT % 59.8 % (42.8-82.8); PLATELET COUNT 298 10^3/uL (134-434); RBC 5.27 M/mm3 (4.00-5.60); RDW 13.8 % (11.9-15.9); WHITE BLOOD COUNT 5.3 K/mm3 (4.0-10.0)
[2022-07-24 10:40] LABS: INR 1.12 (0.83-1.09)
[2022-07-24 11:04] LABS: PHOSPHOROUS 2.3 mg/dL (2.5-4.9)
[2022-07-24 11:06] LABS: ALBUMIN 3.6 g/dl (3.4-5.0); BLOOD UREA NITROGEN 8.8 mg/dL (7-18)
[2022-07-24 11:07] LABS: MAGNESIUM 2.5 mg/dL (1.8-2.4)
[2022-07-24 11:08] LABS: CREATININE 0.9 mg/dL (0.55-1.3); TOT PROT 7.3 g/dl (6.4-8.2)
[2022-07-24 11:10] LABS: N-TERMINAL BNP 242.2 pg/ml (5-125)
[2022-07-24 11:14] LABS: BILIRUBIN,TOTAL 0.9 mg/dL (0.2-1)
[2022-07-24] MEDS: CYCLOBENZAPRINE HCL 5 MG TABLET PO SCH ×2 (15:04→21:29)
[2022-07-24] MEDS: KETOROLAC TROMETHAMINE 15 MG/ML VIAL IVPUSH SCH ×2 (15:05→18:08)
[2022-07-25] MEDS: KETOROLAC TROMETHAMINE 15 MG/ML VIAL IVPUSH SCH ×2 (01:43→05:54)
[2022-07-25] MEDS: CYCLOBENZAPRINE HCL 5 MG TABLET PO SCH ×4 (05:54→23:15)
[2022-07-25] MEDS: ENOXAPARIN NA (PORCINE) 40 MG/0.4 ML DISP.SYRIN SQ SCH (10:04)
[2022-07-25] MEDS: PANTOPRAZOLE 40 MG TABLET PO SCH (10:04)
[2022-07-25] MEDS ORDERED: LACTATED RINGERS SOLUTION 1,000 ML/1,000 ML INFUS.BAG IV SCH ×2 (11:30→14:08)
[2022-07-25] MEDS ORDERED: BUPIVACAINE HCL/PF 0.25% (2.5MG/ML) 10 ML VIAL ONE (11:45)
[2022-07-25] MEDS ORDERED: POLYETHYLENE GLYCOL (HEALTHYLAX) 3350 17 GM PACKET PO SCH (11:45)
[2022-07-25] MEDS ORDERED: PROPOFOL 20 ML ONE (12:17)
[2022-07-25] MEDS ORDERED: ROCURONIUM BROMIDE 50 MG/5 ML SYRINGE ONE (12:17)
[2022-07-25] MEDS ORDERED: MIDAZOLAM HCL 2 MG/2 ML SINGLE DOSE VIAL ONE (12:18)
[2022-07-25] MEDS ORDERED: DEXAMETHASONE SOD PHOSPHATE 4 MG/1 ML VIAL ONE (12:43)
[2022-07-25] MEDS ORDERED: ceFAZolin SODIUM 1 GM VIAL ONE (12:43)
[2022-07-25] MEDS ORDERED: ONDANSETRON 4 MG/2 ML VIAL ONE (12:43)
[2022-07-25] MEDS ORDERED: ceFAZolin SODIUM 1 GM VIAL IVPB ONE ×2 (12:45→12:46)
[2022-07-25] MEDS ORDERED: BUPIVACAINE HCL/PF 2.5 MG/ML - 30 ML VIAL IJ ONE (12:51)
[2022-07-25] MEDS ORDERED: NEOSTIGMINE METHYLSULFATE 0.5 MG/1 ML - 10 ML MDV ONE (13:10)
[2022-07-25] MEDS ORDERED: KETOROLAC TROMETHAMINE 30 MG/1 ML VIAL ONE (13:22)
[2022-07-25] MEDS ORDERED: oxyCODONE HCL 5 MG TABLET PO PRN ×2 (14:08)
[2022-07-25] MEDS ORDERED: MAG HYDROX/AL HYDROX/SIMETH 30 ML UNIT-DOSE CUP PO PRN (14:08)
[2022-07-25] MEDS ORDERED: ONDANSETRON 4 MG/2 ML VIAL IVPUSH PRN ×2 (14:08→14:24)
[2022-07-25] MEDS ORDERED: PROMETHAZINE HCL 25 MG/1 ML VIAL IVPB PRN (14:24)
[2022-07-25] MEDS ORDERED: LACTATED RINGERS SOLUTION 1,000 ML IV SCH (14:30)
[2022-07-25 14:46] VITALS: BMI 29.9
[2022-07-25] MEDS: DOCUSATE SODIUM 100 MG CAPSULE (FP) PO SCH (18:04)
[2022-07-25] MEDS: ACETAMINOPHEN 500 MG TABLET (FP) PO SCH (22:58)
[2022-07-26] MEDS: ACETAMINOPHEN 500 MG TABLET (FP) PO SCH ×2 (04:26→09:28)
[2022-07-26] MEDS: CYCLOBENZAPRINE HCL 5 MG TABLET PO SCH (06:33)
[2022-07-26 09:19] LABS: BASO % 0.3 % (0-2.0); EOS % 0.2 % (0-4.5); HEMATOCRIT 42.7 % (35.4-49); HEMOGLOBIN 14.4 GM/dL (11.7-16.9); LYMPH % 21.2 % (8-40); MCH 27.9 pg (25.7-33.7); MCHC 33.8 g/dl (32.0-35.9); MEAN CELL VOLUME 82.5 fl (80-96); MEAN PLT VOLUME 8.5 fl (7.5-11.1); MONO % 6.7 % (3.8-10.2); NEUT % 71.6 % (42.8-82.8); PLATELET COUNT 301 10^3/uL (134-434); RBC 5.17 M/mm3 (4.00-5.60); RDW 13.7 % (11.9-15.9); WHITE BLOOD COUNT 9.8 K/mm3 (4.0-10.0)
[2022-07-26] MEDS: DOCUSATE SODIUM 100 MG CAPSULE (FP) PO SCH (09:29)
[2022-07-26] MEDS: ENOXAPARIN NA (PORCINE) 40 MG/0.4 ML DISP.SYRIN SQ SCH ×2 (09:29→09:34)
[2022-07-26 09:42] LABS: ALBUMIN 3.4 g/dl (3.4-5.0)
[2022-07-26 09:44] LABS: CALCIUM 9.2 mg/dL (8.5-10.1)
[2022-07-26 09:45] LABS: CREATININE 0.9 mg/dL (0.55-1.3)
[2022-07-26 09:47] LABS: BILIRUBIN,TOTAL 0.7 mg/dL (0.2-1); TOT PROT 6.8 g/dl (6.4-8.2)
[2022-07-26] MEDS ORDERED: PANTOPRAZOLE 40 MG TABLET PO SCH (10:00)
[2022-07-26] MEDS ORDERED: POLYETHYLENE GLYCOL (HEALTHYLAX) 3350 17 GM PACKET PO SCH (10:00)
[2022-07-26 14:50] VITALS: BP 113/73; PULSE 96; RESP 20; TEMP 98.2
== END 2022-07-26 15:02 | disposition home or self-care (01) | DRG 419 ==
LOC: JER 08:41 → JERBED 11:28 → J7W 15:04 → OBSVTOIN 07-25 10:24
PROVIDERS: ADMIT Internal Medicine
PROC: 0FT44ZZ Resection of Gallbladder, Percutaneous Endoscopic Approach (ICD-10-PCS; principal; 2022-07-25 11:00)
DX: K80.12 Calculus of gallbladder with acute and chronic cholecystitis without obstruction (principal); E78.5 Hyperlipidemia, unspecified; K21.9 Gastro-esophageal reflux disease without esophagitis; K59.00 Constipation, unspecified
CPT/HCPCS: 36415; 78226-TC; 80053; 81003; 82150; 83690; 83735; 83880; 84100; 85025; 85610; 85730; 86850; 86900; 86901; 87086; 88304-TC; 93005; 93010; 94010; 94760; 99285-25; A9537; C9803-CS; G0378; U0003; U0005

== ENCOUNTER 2022-07-28 12:01 | Emergency (ER) | payer OTHER ==
[2022-07-28 12:07] VITALS: BP 130/83; RESP 20; TEMP 97.6; BMI 29.0
[2022-07-28] MEDS ORDERED: SODIUM CHLORIDE 1,000 ML IV STA (12:38)
[2022-07-28 12:53] LABS: EPI CELLS 2 /uL (0-25.1); HYALINE CASTS 0 /uL (0-3.1); URINE APPEARANCE CLEAR; URINE BACTERIA 1 /uL (0-1359); URINE BILIRUBIN NEGATIVE (NEGATIVE); URINE COLOR DK YELLOW; URINE GLUCOSE (UA) NEGATIVE (NEGATIVE); URINE KETONE 2+ (NEGATIVE); URINE LEUK ESTERASE TRACE (NEGATIVE); URINE NITRITE NEGATIVE (NEGATIVE); URINE PROTEIN TRACE (NEGATIVE); URINE RBC 8 /uL (0-23.9); URINE WBC 5 /uL (0-25.8)
[2022-07-28 13:37] LABS: BASO % 0.8 % (0-2.0); EOS % 0.5 % (0-4.5); HEMATOCRIT 46.1 % (35.4-49); HEMOGLOBIN 15.1 GM/dL (11.7-16.9); LYMPH % 24.7 % (8-40); MCH 26.8 pg (25.7-33.7); MCHC 32.9 g/dl (32.0-35.9); MEAN CELL VOLUME 81.6 fl (80-96); MEAN PLT VOLUME 8.3 fl (7.5-11.1); MONO % 7.5 % (3.8-10.2); NEUT % 66.5 % (42.8-82.8); PLATELET COUNT 352 10^3/uL (134-434); RBC 5.65 M/mm3 (4.00-5.60); WHITE BLOOD COUNT 7.9 K/mm3 (4.0-10.0)
[2022-07-28 13:42] LABS: CALCIUM 9.5 mg/dL (8.5-10.1)
[2022-07-28 13:43] LABS: ALBUMIN 3.6 g/dl (3.4-5.0); BLOOD UREA NITROGEN 11.8 mg/dL (7-18)
[2022-07-28 13:47] LABS: BILIRUBIN,TOTAL 0.8 mg/dL (0.2-1)
[2022-07-28 13:48] LABS: TOT PROT 7.5 g/dl (6.4-8.2)
[2022-07-28 16:08] VITALS: PULSE 85
== END 2022-07-28 16:27 | disposition home or self-care (01) ==
LOC: JER 12:01
PROC: 3E0337Z Introduction of Electrolytic and Water Balance Substance into Peripheral Vein, Percutaneous Approach (ICD-10-PCS; principal; 2022-07-28)
DX: G89.18 Other acute postprocedural pain (principal); R10.11 Right upper quadrant pain
CPT/HCPCS: 36415; 74177-TC; 80053; 81003; 82150; 83605; 83690; 85025; 87086; 99285-25; Q9967

== ENCOUNTER 2022-10-25 19:17 | Emergency (ER) | payer OTHER ==
[2022-10-25 19:25] VITALS: BP 119/78; PULSE 90; RESP 20; TEMP 98.1; BMI 29.2
[2022-10-25] MEDS ORDERED: DEXAMETHASONE SOD PHOSPHATE 10 MG/1 ML VIAL IVPUSH ONE (20:31)
[2022-10-25] MEDS ORDERED: DEXAMETHASONE SOD PHOSPHATE 10 MG/1 ML VIAL ONE (20:34)
[2022-10-25 21:15] LABS: BASO % 0.8 % (0-2.0); EOS % 5.2 % (0-4.5); HEMATOCRIT 43.3 % (35.4-49); HEMOGLOBIN 14.6 GM/dL (11.7-16.9); LYMPH % 28.4 % (8-40); MCH 27.3 pg (25.7-33.7); MCHC 33.7 g/dl (32.0-35.9); MEAN PLT VOLUME 7.6 fl (7.5-11.1); MONO % 7.4 % (3.8-10.2); NEUT % 58.2 % (42.8-82.8); PLATELET COUNT 343 10^3/uL (134-434); RBC 5.35 M/mm3 (4.00-5.60)
[2022-10-25] MEDS ORDERED: ONDANSETRON 4 MG/2 ML VIAL IVPUSH ONE (21:41)
[2022-10-25 21:48] LABS: POTASSIUM 3.8 mmol/L (3.5-5.1)
[2022-10-25 21:50] LABS: CALCIUM 9.2 mg/dL (8.5-10.1)
[2022-10-25 21:51] LABS: ALBUMIN 3.7 g/dl (3.4-5.0); BLOOD UREA NITROGEN 10.7 mg/dL (7-18); MAGNESIUM 2.4 mg/dL (1.8-2.4)
[2022-10-25 21:54] LABS: CREATININE 1.1 mg/dL (0.55-1.3); PHOSPHOROUS 2.8 mg/dL (2.5-4.9)
[2022-10-25] MEDS ORDERED: ONDANSETRON 4 MG/2 ML VIAL ONE (21:54)
[2022-10-25 21:56] LABS: BILIRUBIN,TOTAL 0.3 mg/dL (0.2-1); TOT PROT 7.8 g/dl (6.4-8.2)
== END 2022-10-25 23:25 | disposition home or self-care (01) ==
LOC: JER 19:17
PROC: 3E033GC Introduction of Other Therapeutic Substance into Peripheral Vein, Percutaneous Approach (ICD-10-PCS; principal; 2022-10-25)
PROC: 3E033GC Introduction of Other Therapeutic Substance into Peripheral Vein, Percutaneous Approach (ICD-10-PCS; 2022-10-25)
DX: R20.2 Paresthesia of skin (principal); H57.89 Other specified disorders of eye and adnexa; R51.9 Headache, unspecified; R13.10 Dysphagia, unspecified; H53.71 Glare sensitivity; M62.838 Other muscle spasm
CPT/HCPCS: 36415; 70450-TC; 70486-TC; 72125-TC; 80053; 83735; 84100; 85025; 93005; 93010; 99285-25; J1100

== ENCOUNTER 2023-03-03 00:41 | Emergency (ER) | payer OTHER ==
[2023-03-03 00:46] VITALS: BP 130/84; PULSE 76; RESP 20; TEMP 97.9; BMI 31.1
[2023-03-03 02:12] LABS: EOS % 2.5 % (0-4.5); HEMATOCRIT 45.3 % (35.4-49); HEMOGLOBIN 14.9 GM/dL (11.7-16.9); LYMPH % 32.5 % (8-40); MCH 27.3 pg (25.7-33.7); MEAN CELL VOLUME 82.9 fl (80-96); MEAN PLT VOLUME 7.7 fl (7.5-11.1); MONO % 9.2 % (3.8-10.2); NEUT % 54.8 % (42.8-82.8); PLATELET COUNT 355 10^3/uL (134-434); RBC 5.47 M/mm3 (4.00-5.60); RDW 14.3 % (11.9-15.9); WHITE BLOOD COUNT 8.8 K/mm3 (4.0-10.0)
[2023-03-03 02:23] LABS: BLOOD UREA NITROGEN 10.1 mg/dL (7-18)
[2023-03-03 02:24] LABS: ALBUMIN 3.6 g/dl (3.4-5.0)
[2023-03-03 02:28] LABS: BILIRUBIN,TOTAL 0.4 mg/dL (0.2-1); TOT PROT 7.8 g/dl (6.4-8.2)
== END 2023-03-03 03:07 | disposition home or self-care (01) ==
LOC: JER 00:41
DX: R00.2 Palpitations (principal)
CPT/HCPCS: 36415; 80053; 84443; 84484; 85025; 93005; 93010; 99284-25

== ENCOUNTER 2023-04-01 02:52 | Emergency (ER) | payer OTHER ==
[2023-04-01 03:04] VITALS: BMI 31.1
[2023-04-01] MEDS ORDERED: ACETAMINOPHEN 1000 MG/100 ML BAG IVPB ONE (03:42)
[2023-04-01] MEDS ORDERED: ONDANSETRON 4 MG/2 ML VIAL IVPUSH ONE (03:42)
[2023-04-01] MEDS ORDERED: SODIUM CHLORIDE 1,000 ML IV STA (03:42)
[2023-04-01] MEDS ORDERED: ACETAMINOPHEN INJECTION 100 ML IVPB ONE (04:00)
[2023-04-01] MEDS ORDERED: ONDANSETRON 4 MG/2 ML VIAL ONE (04:00)
[2023-04-01 04:25] LABS: INR 0.97 (0.83-1.09); PROTHROMBIN TIME (PATIENT) 11.2 SEC (9.7-13.0)
[2023-04-01 04:28] LABS: ACTIVATED PTT 28.7 SECONDS (25.2-36.5)
[2023-04-01 04:41] LABS: POTASSIUM 3.9 mmol/L (3.5-5.1)
[2023-04-01 04:44] LABS: ALBUMIN 3.7 g/dl (3.4-5.0); BLOOD UREA NITROGEN 13.8 mg/dL (7-18)
[2023-04-01 04:48] LABS: BILIRUBIN,TOTAL 0.3 mg/dL (0.2-1); TOT PROT 7.6 g/dl (6.4-8.2)
[2023-04-01 04:50] LABS: BASO % 0.7 % (0-2.0); EOS % 2.1 % (0-4.5); HEMATOCRIT 47.5 % (35.4-49); HEMOGLOBIN 15.5 GM/dL (11.7-16.9); LYMPH % 24.2 % (8-40); MCH 27.2 pg (25.7-33.7); MCHC 32.8 g/dl (32.0-35.9); MEAN PLT VOLUME 7.8 fl (7.5-11.1); MONO % 8.3 % (3.8-10.2); NEUT % 64.7 % (42.8-82.8); PLATELET COUNT 378 10^3/uL (134-434); RBC 5.72 M/mm3 (4.00-5.60)
[2023-04-01 05:45] VITALS: BP 110/66; PULSE 76; RESP 16; TEMP 98
[2023-04-01] MEDS ORDERED: morphine CARPU-JECT 2 MG/1 ML DISP.SYRIN IVPUSH ONE (06:20)
[2023-04-01] MEDS ORDERED: SIMETHICONE 80 MG TAB.CHEW (FP) PO ONE (06:29)
[2023-04-01] MEDS ORDERED: SIMETHICONE 80 MG TAB.CHEW (FP) ONE (06:31)
[2023-04-01 07:57] LABS: PH,URINE 6.5 (5.0-8.0); URINE APPEARANCE CLEAR; URINE BILIRUBIN NEGATIVE (NEGATIVE); URINE COLOR YELLOW; URINE GLUCOSE (UA) NEGATIVE (NEGATIVE); URINE KETONE NEGATIVE (NEGATIVE); URINE LEUK ESTERASE NEGATIVE (NEGATIVE); URINE NITRITE NEGATIVE (NEGATIVE); URINE PROTEIN NEGATIVE (NEGATIVE); URINE UROBILINOGEN 0.2 mg/dL (0.2-1.0)
== END 2023-04-01 09:18 | disposition home or self-care (01) ==
LOC: JER 02:52
PROC: 3E033NZ Introduction of Analgesics, Hypnotics, Sedatives into Peripheral Vein, Percutaneous Approach (ICD-10-PCS; principal; 2023-04-01)
PROC: 3E033GC Introduction of Other Therapeutic Substance into Peripheral Vein, Percutaneous Approach (ICD-10-PCS; 2023-04-01)
PROC: 3E0337Z Introduction of Electrolytic and Water Balance Substance into Peripheral Vein, Percutaneous Approach (ICD-10-PCS; 2023-04-01)
DX: R10.11 Right upper quadrant pain (principal); R10.13 Epigastric pain; N20.0 Calculus of kidney
CPT/HCPCS: 36415; 74177-TC; 80053; 81003; 83690; 85025; 85610; 85730; 87086; 99285-25; Q9967

== ENCOUNTER 2023-06-23 09:04 | Emergency (ER) | payer OTHER ==
[2023-06-23 09:12] VITALS: BMI 30.2
[2023-06-23] MEDS ORDERED: ACETAMINOPHEN 1000 MG/100 ML BAG IVPB ONE (10:10)
[2023-06-23] MEDS ORDERED: ACETAMINOPHEN INJECTION 100 ML IVPB ONE (11:59)
[2023-06-23 12:20] LABS: BASO % 0.5 % (0-2.0); EOS % 0.3 % (0-4.5); HEMATOCRIT 48.6 % (35.4-49); HEMOGLOBIN 16.3 GM/dL (11.7-16.9); LYMPH % 17.1 % (8-40); MCH 27.6 pg (25.7-33.7); MCHC 33.6 g/dl (32.0-35.9); MEAN CELL VOLUME 82.2 fl (80-96); MEAN PLT VOLUME 7.8 fl (7.5-11.1); MONO % 5.3 % (3.8-10.2); NEUT % 76.8 % (42.8-82.8); PLATELET COUNT 343 10^3/uL (134-434); RBC 5.91 M/mm3 (4.00-5.60); RDW 13.8 % (11.9-15.9); WHITE BLOOD COUNT 8.2 K/mm3 (4.0-10.0)
[2023-06-23 12:40] LABS: POTASSIUM 4.3 mmol/L (3.5-5.1)
[2023-06-23 12:44] LABS: ALBUMIN 4.1 g/dl (3.4-5.0); BLOOD UREA NITROGEN 7.6 mg/dL (7-18); CALCIUM 9.7 mg/dL (8.5-10.1)
[2023-06-23 12:47] LABS: CREATININE 1.1 mg/dL (0.55-1.3)
[2023-06-23 12:49] LABS: BILIRUBIN,TOTAL 0.6 mg/dL (0.2-1); TOT PROT 8.7 g/dl (6.4-8.2)
[2023-06-23 12:55] LABS: PH,URINE 6.5 (5.0-8.0); URINE APPEARANCE CLEAR; URINE BILIRUBIN NEGATIVE (NEGATIVE); URINE COLOR YELLOW; URINE GLUCOSE (UA) NEGATIVE (NEGATIVE); URINE KETONE NEGATIVE (NEGATIVE); URINE LEUK ESTERASE NEGATIVE (NEGATIVE); URINE NITRITE NEGATIVE (NEGATIVE); URINE PROTEIN NEGATIVE (NEGATIVE); URINE UROBILINOGEN 0.2 mg/dL (0.2-1.0)
[2023-06-23] MEDS ORDERED: ONDANSETRON 4 MG/2 ML VIAL IVPUSH ONE (13:48)
[2023-06-23] MEDS ORDERED: ONDANSETRON 4 MG/2 ML VIAL ONE (14:03)
[2023-06-23 14:14] VITALS: BP 122/87; PULSE 77; RESP 19; TEMP 97.7
== END 2023-06-23 14:19 | disposition home or self-care (01) ==
LOC: JER 09:04
PROC: 3E033NZ Introduction of Analgesics, Hypnotics, Sedatives into Peripheral Vein, Percutaneous Approach (ICD-10-PCS; principal; 2023-06-23)
PROC: 3E033GC Introduction of Other Therapeutic Substance into Peripheral Vein, Percutaneous Approach (ICD-10-PCS; 2023-06-23)
DX: R51.9 Headache, unspecified (principal); R07.9 Chest pain, unspecified; R00.2 Palpitations; Z20.822 Contact with and (suspected) exposure to COVID-19
CPT/HCPCS: 0241U-QW; 36415; 71046-TC-FY; 80053; 81003; 83735; 84443; 84484; 85025; 87086; 93005; 93010; 99285-25

== ENCOUNTER 2023-06-26 22:04 | Emergency (ER) | payer OTHER ==
[2023-06-26 22:10] VITALS: BMI 30.2
[2023-06-26] MEDS ORDERED: methylPREDNISolone NA SUCC 125 MG/2 ML VIAL IVPUSH ONE (22:24)
[2023-06-26] MEDS ORDERED: SODIUM CHLORIDE 0.9% 500 ML INFUS.BAG IV ONE (22:24)
[2023-06-26] MEDS ORDERED: methylPREDNISolone NA SUCC 125 MG/2 ML VIAL ONE (22:24)
[2023-06-26] MEDS ORDERED: FAMOTIDINE 20 MG/50 ML IVPB 20 MG/50 ML MG IVPB ONE ×2 (22:24→22:36)
[2023-06-27 00:32] VITALS: BP 120/76; PULSE 88; RESP 17; TEMP 98
== END 2023-06-27 00:49 | disposition home or self-care (01) ==
LOC: JER 22:04
PROC: 3E033GC Introduction of Other Therapeutic Substance into Peripheral Vein, Percutaneous Approach (ICD-10-PCS; principal; 2023-06-26)
PROC: 3E033GC Introduction of Other Therapeutic Substance into Peripheral Vein, Percutaneous Approach (ICD-10-PCS; 2023-06-26)
PROC: 3E033GC Introduction of Other Therapeutic Substance into Peripheral Vein, Percutaneous Approach (ICD-10-PCS; 2023-06-26)
DX: R21 Rash and other nonspecific skin eruption (principal); T78.40XA Allergy, unspecified, initial encounter; Z20.822 Contact with and (suspected) exposure to COVID-19
CPT/HCPCS: 0241U-QW; 87651; 99284-25

== ENCOUNTER 2023-07-04 04:49 | Emergency (ER) | payer OTHER ==
[2023-07-04 04:53] VITALS: BP 115/67; PULSE 58; RESP 16; TEMP 97.9; BMI 29.9
[2023-07-04] MEDS ORDERED: ACETAMINOPHEN INJECTION 100 ML IVPB ONE (05:40)
[2023-07-04] MEDS ORDERED: FAMOTIDINE 20 MG/50 ML IVPB 20 MG/50 ML MG IVPB ONE (05:40)
[2023-07-04] MEDS: ACETAMINOPHEN 1000 MG/100 ML BAG IVPB ONE (05:54)
[2023-07-04] MEDS: FAMOTIDINE 20 MG/50 ML IVPB 20 MG/50 ML MG IVPB ONE (05:54)
[2023-07-04] MEDS: SODIUM CHLORIDE 1,000 ML IV STA (05:54)
[2023-07-04 06:08] LABS: BASO % 0.6 % (0-2.0); EOS % 0.6 % (0-4.5); HEMOGLOBIN 14.8 GM/dL (11.7-16.9); LYMPH % 24.9 % (8-40); MCH 27.3 pg (25.7-33.7); MCHC 33.7 g/dl (32.0-35.9); MEAN CELL VOLUME 81.2 fl (80-96); MEAN PLT VOLUME 7.7 fl (7.5-11.1); MONO % 7.3 % (3.8-10.2); NEUT % 66.6 % (42.8-82.8); PLATELET COUNT 278 10^3/uL (134-434); RBC 5.42 M/mm3 (4.00-5.60); RDW 13.6 % (11.9-15.9); WHITE BLOOD COUNT 7.1 K/mm3 (4.0-10.0)
[2023-07-04 06:37] LABS: PH,URINE 6.5 (5.0-8.0); URINE APPEARANCE CLEAR; URINE BILIRUBIN NEGATIVE (NEGATIVE); URINE COLOR YELLOW; URINE GLUCOSE (UA) NEGATIVE (NEGATIVE); URINE KETONE TRACE (NEGATIVE); URINE LEUK ESTERASE NEGATIVE (NEGATIVE); URINE NITRITE NEGATIVE (NEGATIVE); URINE PROTEIN NEGATIVE (NEGATIVE); URINE UROBILINOGEN 0.2 mg/dL (0.2-1.0)
[2023-07-04 06:38] LABS: INR 1.09 (0.83-1.09); PROTHROMBIN TIME (PATIENT) 12.6 SEC (9.7-13.0)
[2023-07-04 06:41] LABS: ACTIVATED PTT 28.2 SECONDS (25.2-36.5)
[2023-07-04 07:27] LABS: POTASSIUM 4.1 mmol/L (3.5-5.1)
[2023-07-04 07:29] LABS: CALCIUM 8.6 mg/dL (8.5-10.1)
[2023-07-04 07:30] LABS: BLOOD UREA NITROGEN 7.4 mg/dL (7-18)
[2023-07-04 07:31] LABS: ALBUMIN 3.6 g/dl (3.4-5.0)
[2023-07-04 07:33] LABS: CREATININE 0.9 mg/dL (0.55-1.3)
[2023-07-04 07:34] LABS: TOT PROT 7.3 g/dl (6.4-8.2)
[2023-07-04 07:36] LABS: BILIRUBIN,TOTAL 0.5 mg/dL (0.2-1)
== END 2023-07-04 10:28 | disposition home or self-care (01) ==
LOC: JER 04:49
PROC: 3E033GC Introduction of Other Therapeutic Substance into Peripheral Vein, Percutaneous Approach (ICD-10-PCS; principal; 2023-07-04)
PROC: 3E033NZ Introduction of Analgesics, Hypnotics, Sedatives into Peripheral Vein, Percutaneous Approach (ICD-10-PCS; 2023-07-04)
DX: R10.30 Lower abdominal pain, unspecified (principal); R11.0 Nausea; R19.7 Diarrhea, unspecified; R42 Dizziness and giddiness; R55 Syncope and collapse
CPT/HCPCS: 36415; 74177-TC; 80053; 81003; 83690; 85025; 85610; 85730; 87086; 93005; 93010; 99285-25; J0131; Q9967

== ENCOUNTER 2023-11-27 01:12 | Emergency (ER) | payer OTHER ==
[2023-11-27 01:18] VITALS: BP 107/74; PULSE 72; RESP 20; TEMP 98; BMI 29.2
[2023-11-27] MEDS ORDERED: MAG HYDROX/AL HYDROX/SIMETH 30 ML UNIT-DOSE CUP ONE (02:14)
[2023-11-27] MEDS ORDERED: ACETAMINOPHEN INJECTION 100 ML IVPB ONE (02:14)
[2023-11-27] MEDS ORDERED: DICYCLOMINE HCL 10 MG CAPSULE ONE (02:14)
[2023-11-27] MEDS ORDERED: FAMOTIDINE 20 MG/50 ML IVPB 20 MG/50 ML MG IVPB ONE (02:15)
[2023-11-27] MEDS: FAMOTIDINE 20 MG/50 ML IVPB 20 MG/50 ML MG IVPB ONE (02:21)
[2023-11-27] MEDS: MAG HYDROX/AL HYDROX/SIMETH 30 ML UNIT-DOSE CUP PO ONE (02:21)
[2023-11-27] MEDS: DICYCLOMINE HCL 10 MG CAPSULE PO ONE (02:21)
[2023-11-27] MEDS: ACETAMINOPHEN 1000 MG/100 ML BAG IVPB ONE (02:43)
== END 2023-11-27 03:45 | disposition home or self-care (01) ==
LOC: JER 01:12
PROC: 3E033GC Introduction of Other Therapeutic Substance into Peripheral Vein, Percutaneous Approach (ICD-10-PCS; principal; 2023-11-27)
PROC: 3E033NZ Introduction of Analgesics, Hypnotics, Sedatives into Peripheral Vein, Percutaneous Approach (ICD-10-PCS; 2023-11-27)
DX: R10.10 Upper abdominal pain, unspecified (principal); R11.2 Nausea with vomiting, unspecified
CPT/HCPCS: 99284-25; J0131

== ENCOUNTER 2024-01-27 18:24 | Emergency (ER) | payer OTHER ==
[2024-01-27 18:39] VITALS: BP 138/75; PULSE 69; RESP 18; TEMP 98.1; BMI 29.8
[2024-01-27] MEDS ORDERED: KETOROLAC TROMETHAMINE 30 MG/1 ML VIAL ONE (19:57)
[2024-01-27] MEDS ORDERED: METOCLOPRAMIDE HCL INJECTION 10 MG/2 ML VIAL ONE (19:57)
[2024-01-27] MEDS: KETOROLAC TROMETHAMINE 30 MG/1 ML VIAL IVPUSH ONE (20:11)
[2024-01-27] MEDS: SODIUM CHLORIDE 1,000 ML IV STA (20:11)
[2024-01-27] MEDS: METOCLOPRAMIDE HCL INJECTION 10 MG/2 ML VIAL IVPUSH ONE ×2 (20:11→20:12)
[2024-01-27 21:47] LABS: HIV INTERPRETATION NEGATIVE (NEGATIVE)
== END 2024-01-27 21:17 | disposition home or self-care (01) ==
LOC: JER 18:24
PROC: 3E0333Z Introduction of Anti-inflammatory into Peripheral Vein, Percutaneous Approach (ICD-10-PCS; principal; 2024-01-27)
PROC: 3E033GC Introduction of Other Therapeutic Substance into Peripheral Vein, Percutaneous Approach (ICD-10-PCS; 2024-01-27)
PROC: 3E0337Z Introduction of Electrolytic and Water Balance Substance into Peripheral Vein, Percutaneous Approach (ICD-10-PCS; 2024-01-27)
DX: G44.209 Tension-type headache, unspecified, not intractable (principal); M54.2 Cervicalgia; R11.0 Nausea; R20.2 Paresthesia of skin; R53.1 Weakness
CPT/HCPCS: 36415; 86803; 87389; 93005; 93010; 99284-25

== ENCOUNTER 2024-05-17 03:48 | Emergency (ER) | payer OTHER ==
[2024-05-17 03:53] VITALS: BP 128/89; PULSE 76; RESP 18; TEMP 97.9; BMI 27.8
[2024-05-17] MEDS ORDERED: ACETAMINOPHEN 500 MG TABLET (FP) ONE (04:31)
[2024-05-17] MEDS ORDERED: DEXAMETHASONE 4 MG TABLET (FP) ONE (04:32)
[2024-05-17] MEDS: DEXAMETHASONE 4 MG TABLET (FP) PO ONE ×2 (04:34)
[2024-05-17] MEDS: ACETAMINOPHEN 500 MG TABLET (FP) PO ONE (04:34)
== END 2024-05-17 05:10 | disposition home or self-care (01) ==
LOC: JER 03:48
DX: J00 Acute nasopharyngitis [common cold] (principal); R05.9 Cough, unspecified; R06.02 Shortness of breath; J02.9 Acute pharyngitis, unspecified
CPT/HCPCS: 70360-TC-FY; 99283-25